=== PATIENT | female | born 1960 | race Asian ===

== ENCOUNTER 2019-08-25 01:08 | Emergency (ER) | payer BC ==
[~2019-08-25] VITALS: Ht 152.4 cm; Wt 54.1 kg
[2019-08-25 01:12] VITALS: BP 127/85
--- NOTE | 2019-08-25 01:18 | NUR ---
splint in place to right ankle, she has had ice on it. C/O pain secondary to fall. No LOC. No blood thinners. CMS intact.
[2019-08-25] MEDS ORDERED: HYDROcodone/acetaminophen 10/325mg tab PO ONE (01:30)
[2019-08-25] MEDS ORDERED: HYDR-4353 PO (01:33)
== END 2019-08-25 02:15 | disposition home or self-care (01) ==
LOC: ER 01:09
DX: S82.831A Other fracture of upper and lower end of right fibula, initial encounter for closed fracture (principal); M81.0 Age-related osteoporosis without current pathological fracture; Z88.5 Allergy status to narcotic agent; W01.0XXA Fall on same level from slipping, tripping and stumbling without subsequent striking against object, initial encounter; Y93.89 Activity, other specified; Y92.89 Other specified places as the place of occurrence of the external cause; Y99.8 Other external cause status
CPT/HCPCS: 29515; 73610; 99284